=== PATIENT | female | born 1995 | race African-American/Black ===

== ENCOUNTER 2019-09-25 23:12 | Inpatient (IN) | payer MEDICAID ==
[2019-09-26] MEDS ORDERED: Sodium Chloride 0.9% 10 ML Syringe FLUSH PRN (02:02)
[2019-09-26] MEDS ORDERED: Nalbuphine 10 MG/ML Syringe IVPUSH PRN (02:02)
[2019-09-26] MEDS ORDERED: Ondansetron 4 MG/2 ML SDV IVPUSH PRN (02:02)
[2019-09-26] MEDS ORDERED: Oxytocin/Lactated Ringers 10 UNIT/1,000 ML BAG IV SCH ×2 (02:15)
[2019-09-26] MEDS ORDERED: Lactated Ringers 1,000 ML IV SCH (02:15)
--- NOTE | 2019-09-26 11:24 | PCM.LDHP ---
L&D History of Present Illness - General Date of Service: 09/26/19 Admit Problem/Dx: Patient Status Order with Admit Dx/Problem 09/25/19 23:22 Patient Status [ADT] Routine 09/26/19 02:09 Patient Status [ADT] Routine Admission Diagnosis/Problem Admission Diagnosis/Problem - History of Present Illness Introduction:: 24 year old at 37+ here with labor. [facility] in [place]. Complicated by hepatitis B. - Related Data Allergies/Adverse Reactions: Allergies Allergy/AdvReac Type Severity Reaction Status Date / Time No Known Allergies Allergy Verified 09/26/19 02:44 Home Medications: Home Meds Ferrous Sulfate [Iron] 325 mg PO DAILY 09/26/19 [History] Meclizine [Antivert] 25 mg PO Q8HR PRN 09/26/19 [History] Vit37/Iron/Folic Acid [Prenata] 1 each PO DAILY 09/26/19 [History] Promethazine [Phenergan] 25 mg PO Q4H PRN 09/26/19 [History] Past Medical History Cardiovascular History: Reports: Other (See Below) Other Cardiovascular History: Monitored during for tachycardia episodes [employer] History: Reports: Hematologic History: 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, Sickle Cell Anemia Other Immunologic History: Hepatitis B - Infectious Disease History Infectious Disease History: Reports: Hepatitis B - Past Surgical History Cardiovascular Surgical History: Reports: None Oncologic Surgical History: Reports: None Dermatological Surgical History: Reports: None Social & Family History - Family History Family Medical History: Noncontributory - Tobacco Use Smoking Status *Q: Never Smoker - Recreational Drug Use Recreational Drug Use: No H&P Review of Systems - Review of Systems: Review Of Systems: See Below General: Reports: No Symptoms HEENT: Reports: No Symptoms Pulmonary: Reports: No Symptoms Cardiovascular: Reports: No Symptoms Gastrointestinal: Reports: No Symptoms Genitourinary: Reports: No Symptoms Musculoskeletal: Reports: No Symptoms Skin: Reports: No Symptoms Psychiatric: Reports: No Symptoms Neurological: Reports: No Symptoms Hematologic/Lymphatic: Reports: No Symptoms Immunologic: Reports: No Symptoms L&D Exam - Exam Exam: See Below - Vital Signs Vital Signs: Last Vital Signs Temp 36.6 C 09/25/19 23:34 Pulse 91 09/25/19 23:34 Resp 18 09/25/19 23:34 BP 110/70 07/23/20 23:34 Pulse Ox 100 09/25/19 23:34 Weight: 68.039 kg - OB Specific Contraction Intensity: Moderate to Strong Movement: Active Heart Tones: Present Heart Rate (FHR) Variability: Moderate (6-25 bmp) Presentation: Vertex - Salinas Score Salinas Score Cervix Position: Anterior Salinas Score Consistency: Soft Salinas Score Effacement: 51-70% Salinas Score Dilation: 3-4 cm Salinas Score 's Station: -3 Salinas Score Total: 8 - Exam General: Alert, Oriented HEENT: PERRLA, Conjunctiva Clear, EACs Clear, EOMI, Hearing Intact, Mucosa Moist & [place], Nares Patent, Normal Nasal Septum, Posterior Pharynx Clear, TMs Clear Neck: Supple, Trachea Midline Lungs: Clear to Auscultation, Normal Respiratory Effort Cardiovascular: Regular Rate, Regular Rhythm GI/Abdominal Exam: Normal Bowel Sounds, Soft, Non-Tender, No Organomegaly, No Distention, No Abnormal Bruit, No Mass, Pelvis Stable Rectal Exam: Normal Exam, Normal Rectal Tone Genitourinary: Normal external exam, Normal bimanual exam, Normal speculum exam Back Exam: Normal Inspection, Full Range of Motion Extremities: Normal Inspection, Normal Range of Motion, Non-Tender, No Pedal Edema, Normal Capillary Refill Skin: Warm, Dry, Intact Neurological: Cranial Nerves Intact, Reflexes Equal Bilateral Psychiatric: Alert, Normal Affect, Normal Mood - Patient Data Lab Results Last 24 hrs: Laboratory Results - last 24 hr 09/26/19 09/26/19 Range/Units 02:05 02:10 WBC 7.11 (3.98-10.04) K/mm3 RBC 5.12 (3.98-5.22) M/mm3 Hgb 12.9 (11.2-15.7) gm/dl Hct 37.9 (34.1-44.9) % MCV 74.0 L (79.4-94.8) fl MCH 25.2 L (25.6-32.2) pg MCHC 34.0 (32.2-35.5) g/dl RDW Std Deviation 36.4 (36.4-46.3) fL Plt Count 129 L (182-369) K/mm3 MPV 12.7 H (9.4-12.3) fl Neut % (Auto) 63.4 (34.0-71.1) % Lymph % (Auto) 20.7 (19.3-51.7) % Heard % (Auto) 14.9 H (4.7-12.5) % Eos % (Auto) 0.3 L (0.7-5.8) Baso % (Auto) 0.1 (0.1-1.2) % Neut # (Auto) 4.51 (1.56-6.13) K/mm3 Lymph # (Auto) 1.47 (1.18-3.74) K/mm3 Heard # (Auto) 1.06 H (0.24-0.36) K/mm3 Eos # (Auto) 0.02 L (0.04-0.36) K/mm3 Baso # (Auto) 0.01 (0.01-0.08) K/mm3 Manual Slide Review Abnormal smear COVID-19 (COLLETTE) Negative (NEGATIVE) Result Diagrams: 09/26/19 02:10 Problem List Initiated/Reviewed/Updated: Yes Orders Last 24hrs: Active Orders 24 hr Category Date Time Status Patient Status [ADT] Routine ADT 09/26/19 02:09 Active Activity as Tolerated [RC] PFP Care 09/26/19 02:02 Active Communication Order [RC] ASDIRECTED Care 09/26/19 02:02 Active Notify Provider [RC] PFP Care 09/26/19 02:02 Active Notify Provider [RC] PRN Care 09/26/19 02:02 Active Peripheral IV Care [RC] . DIRECTED Care 09/26/19 02:02 Active Vital Signs [RC] PER UNIT ROUTINE Care 09/25/19 23:22 Active Regular Diet [DIET] Diet 09/26/19 Breakfast Active BLOOD BANK HOLD SPECIMEN [BBK] Stat Lab 09/26/19 02:10 Received RAPID PLASMA REAGIN,RPR [CHEM] Routine Lab 09/26/19 02:10 Received Lactated Ringers [Ringers, Lactated] 1,000 ml Med 09/26/19 02:15 Active IV ASDIRECTED Nalbuphine [Nubain] Med 09/26/19 02:02 Active 10 mg IVPUSH Q2H PRN Ondansetron [Zofran] Med 09/26/19 02:02 Active 4 mg IVPUSH Q4H PRN Oxytocin/Lactated Ringers [Pitocin in LR 10 Units/1,000 Med 09/26/19 02:15 Active ML] 10 unit in 1,000 ml IV .CONTINUOUS Oxytocin/Lactated Ringers [Pitocin in LR 10 Units/1,000 Med 09/26/19 02:15 Active ML] 10 unit in 1,000 ml IV TITRATE Sodium Chloride 0.9% [Saline Flush] Med 09/26/19 02:02 Active 10 ml FLUSH ASDIRECTED PRN Electronic Heart Tones Ext w TOCO [WOMSER] Ot 09/26/19 02:02 Ordered Routine Electronic Heart Tones Internal [WOMSER] Per Unit Ot 09/26/19 02:02 Ordered Routine Peripheral IV Insertion Adult [OM.PC] Routine Ot 09/26/19 02:02 Ordered Resuscitation Status Routine Resus Stat 09/25/19 23:22 Ordered Medication Orders Lactated Ringer's (Ringers, Lactated) 1,000 mls @ 100 mls/hr IV ASDIRECTED BOWEN Last Admin: 09/26/19 10:30 Dose: 100 mls/hr Documented by: CAPRICE Oxytocin/Lactated Ringer's (Pitocin In Lr 10 Units/1,000 Ml) 10 unit in 1,000 mls @ 12 mls/hr IV TITRATE BOWEN; Protocol Oxytocin/Lactated Ringer's (Pitocin In Lr 10 Units/1,000 Ml) 10 unit in 1,000 mls @ 100 mls/hr IV .CONTINUOUS BOWEN Nalbuphine HCl (Nubain) 10 mg IVPUSH Q2H PRN PRN Reason: Pain Last Admin: 09/26/19 08:56 Dose: 10 mg Documented by: CAPRICE Ondansetron HCl (Zofran) 4 mg IVPUSH Q4H PRN PRN Reason: Nausea/Vomiting Sodium Chloride (Saline Flush) 10 ml FLUSH ASDIRECTED PRN PRN Reason: Keep Vein Open Assessment/Plan Comment:: Term labor. Anticipate .
--- NOTE | 2019-09-26 11:26 | PCM.SN.2 ---
- Free Text/Narrative Note: Stage 1 - patient presented in active labor. AROM clear fluid. Progressed to complete with overall reassuring FHT. Stage 2 - of viable male, weight 3520g, 8/9 APGARS at 1109. Head delivered in controlled manner over intact perineum. Body and shoulders atraumatically. Positive cry. Pitocin initiated. Cord clamped and cut. Cord blood collected. Stage 3 - of intact placenta. 3vc. No laceration. EBL 400
[2019-09-26] MEDS ORDERED: Witch Hazel Medicated Pads 40/Jar TOP PRN (12:15)
[2019-09-26] MEDS ORDERED: Docusate Sodium 100 MG Cap PO PRN (12:15)
[2019-09-26] MEDS ORDERED: Benzocaine/Menthol 20%-0.5% Spray 56 GM Canister TOP PRN (12:15)
[2019-09-26] MEDS: Ibuprofen 600 MG Tab PO PRN ×2 (13:55→21:35)
[2019-09-26] MEDS: Acetaminophen 325 MG Tab PO PRN (18:08)
[2019-09-27] MEDS: Acetaminophen 325 MG Tab PO PRN ×2 (02:23→08:57)
[2019-09-27] MEDS: Ibuprofen 600 MG Tab PO PRN ×2 (03:42→17:38)
--- NOTE | 2019-09-27 09:39 | PCM.SN.2 ---
- Free Text/Narrative Note: note: Patient is doing well in the period. Minimal lochia, voiding well, ambulated without problems. Nursing without concerns. Baby has mildly elevated bilirubin and will be under the bili lights. Patient prefers to stay till tomorrow. Patient is afebrile, vital signs are stable Abdomen is flat, soft, uterus is below the umbilicus and is firm and nontender. Legs are nontender. Assessment: recovery going well. Plan: Routine care. Patient be discharged home within the next 24-48 hours.
[2019-09-28] MEDS: Ibuprofen 600 MG Tab PO PRN (06:18)
--- NOTE | 2019-09-28 11:59 | PCM.DCSUM1 ---
Discharge Summary - Hospital Course Free Text/Narrative:: Ny is a 24-year-old multigravida -Spanish female who moved from [place] to [place] and transferred her care on 09/24/2021 Dr. Jhoana Gonzalez. On 09/26/2019 the patient went into labor spontaneously. She progressed naturally in labor. Labor progress and delivery details as below: Stage 1 - patient presented in active labor. AROM clear fluid. Progressed to complete with overall reassuring FHT. Stage 2 - of viable male, weight 3520g, 8/9 APGARS at 1109. Head delivered in controlled manner over intact perineum. Body and shoulders atraumatically. Positive cry. Pitocin initiated. Cord clamped and cut. Cord blood collected. Stage 3 - of intact placenta. 3vc. No laceration. EBL 400 patient's done very well. She is nursing without problems. She has experienced nursing with her past 2 children. She is ambulating well and has minimal lochia. She is voiding without problems. Baby was under bilirubin treatment for approximately 24 hours but is now able to go home. Patient desires discharge also. Condition good. Diagnosis: Stroke: No - Discharge Data Discharge Date: 09/28/19 Discharge Disposition: Home, Self-Care 01 Condition: Good - Referral to Home Health Primary Care Physician: Jhoana Corral MD - Patient Instructions Diet: Regular Diet as Tolerated (Nursing diet with increase calories and calcium as recommended) Activity: As Tolerated (No intercourse or tampons until bleeding resolves.) Driving: May Drive Today Showering/Bathing: May Shower Showering/Bathing, Other: May take a bath Notify Provider of: Fever, Increased Pain, Swelling and Redness, Nausea and/or Vomiting - Discharge Plan *PRESCRIPTION DRUG MONITORING PROGRAM REVIEWED*: No Home Medications: Home Meds Ferrous Sulfate [Iron] 325 mg PO DAILY 09/26/19 [History] Meclizine [Antivert] 25 mg PO Q8HR PRN 09/26/19 [History] Vit37/Iron/Folic Acid [Prenata] 1 each PO DAILY 09/26/19 [History] Acetaminophen [Tylenol] 650 mg PO Q6H PRN tablet 09/28/19 [Rx] Ibuprofen [Motrin] 600 mg PO Q6H PRN tablet 09/28/19 [Rx] Referrals: Jhoana Corral MD [Primary Care Provider] - (Patient is to call this week for follow-up appointment) - Discharge Summary/Plan Comment DC Time >30 min.: No Discharge Summary/Plan Comment: Discharge instructions: 1. Discharge home 2. Diet, activity and follow-up discussed with patient. Recommend nursing diet with increased calories and calcium. 3. Precautions given concern increased pain, bleeding, temperature, signs/symptoms of DVT/PE. 4. Medications per home medication was printed, discussed with and given to the patient. 5. [facility] for appointment. Diagnosis: Term -delivered Condition: Good - Patient Data Vitals - Most Recent: Last Vital Signs Temp 36.7 C 09/28/19 02:36 Pulse 75 09/28/19 02:36 Resp 16 09/28/19 02:36 BP 93/63 09/28/19 02:36 Pulse Ox 100 09/28/19 02:36 Weight - Most Recent: 68.039 kg I&O - Last 24 hours: Intake & Output 09/27/19 09/28/19 09/28/19 22:59 06:59 14:59 Intake Total 150 Balance 150 Med Orders - Current: Current Medications Acetaminophen (Tylenol) 650 mg PO Q6H PRN PRN Reason: Pain Last Admin: 09/27/19 08:57 Dose: 650 mg Documented by: Benzocaine/Menthol (Dermoplast Pain Relief Jerome) 0 gm TOP ASDIRECTED PRN PRN Reason: Perineal Comfort Measure Last Admin: 09/26/19 16:57 Dose: 1 spray Documented by: Docusate Sodium (Colace) 100 mg PO BID PRN PRN Reason: Constipation Ibuprofen (Motrin) 600 mg PO Q6H PRN PRN Reason: Mild pain or fever Last Admin: 09/28/19 06:18 Dose: 600 mg Documented by: Malena Allen) 1 pad TOP ASDIRECTED PRN PRN Reason: Pain Last Admin: 09/26/19 16:56 Dose: 1 pad Documented by: Discontinued Medications Lactated Ringer's (Ringers, Lactated) 1,000 mls @ 100 mls/hr IV ASDIRECTED BOWEN Last Admin: 09/26/19 10:30 Dose: 100 mls/hr Documented by: Oxytocin/Lactated Ringer's (Pitocin In Lr 10 Units/1,000 Ml) 10 unit in 1,000 mls @ 12 mls/hr IV TITRATE BOWEN; Protocol Oxytocin/Lactated Ringer's (Pitocin In Lr 10 Units/1,000 Ml) 10 unit in 1,000 mls @ 100 mls/hr IV .CONTINUOUS OBWEN Last Admin: 09/26/19 11:10 Dose: 500 mls/hr Documented by: Nalbuphine HCl (Nubain) 10 mg IVPUSH Q2H PRN PRN Reason: Pain Last Admin: 09/26/19 08:56 Dose: 10 mg Documented by: Ondansetron HCl (Zofran) 4 mg IVPUSH Q4H PRN PRN Reason: Nausea/Vomiting Sodium Chloride (Saline Flush) 10 ml FLUSH ASDIRECTED PRN PRN Reason: Keep Vein Open
== END 2019-09-28 15:35 | disposition home or self-care (01) | DRG 807 ==
LOC: JD.OBCHECK 23:12 → JD.OB 23:18 → JD.OBCHECK 09-26 02:09 → OBSVTOIN 09-26 11:09 → JD.OB 09-26 11:10
PROVIDERS: ADMIT Obstetrics & Gynecology; ATTEND Obstetrics & Gynecology
PROC: 10E0XZZ Delivery of Products of Conception, External Approach (ICD-10-PCS; principal; 2019-09-26)
PROC: 10907ZC Drainage of Amniotic Fluid, Therapeutic from Products of Conception, Via Natural or Artificial Opening (ICD-10-PCS; 2019-09-26)
PROC: 3E033VJ Introduction of Other Hormone into Peripheral Vein, Percutaneous Approach (ICD-10-PCS; 2019-09-26)
PROC: 3E0234Z Introduction of Serum, Toxoid and Vaccine into Muscle, Percutaneous Approach (ICD-10-PCS; 2019-09-26)
DX: O99.02 Anemia complicating childbirth (principal); Z37.0 Single live birth; D57.1 Sickle-cell disease without crisis; Z3A.37 37 weeks gestation of pregnancy; Z11.59 Encounter for screening for other viral diseases; Z23 Encounter for immunization
CPT/HCPCS: 36415; 59025; 59409; 85025; 86592; A9270-GY; J2300; J2590; J7120; U0002